=== PATIENT | female | born 1965 | race Caucasian/White ===

== ENCOUNTER → 2017-04-13 | Outpatient (CLI) | payer BC ==
[~2017-04-13] MED LIST: ATIVAN0.5 MG PO; ATIVAN1 MG PO; ZOFRAN4 MG PO; [UNRECOGNIZED DRUG - REMARK]
[2017-04-13 12:09] LABS: CEA 3.1 ng/mL; FREE T4 0.93 ng/dl (0.76-1.46)
[2017-04-13 12:13] LABS: THYROID STIM HORMONE (HS) 0.153 uIU/ml (0.358-4.75)
[2017-04-14 08:07] LABS: ALPHA-1-ANTITRYPSIN, SERUM 123 mg/dL (90-200); FREE T3 010389 3.5 pg/mL (2.0-4.4); RHEUMATOID ARTHRITIS FACTOR <10.0 IU/mL (0.0-13.9)
== END | disposition home or self-care (01) ==
LOC: LAB 10:45
PROVIDERS: Internal Medicine Pulmonary Disease
DX: J45.909 Unspecified asthma, uncomplicated (principal); J44.9 Chronic obstructive pulmonary disease, unspecified; J40 Bronchitis, not specified as acute or chronic; R79.89 Other specified abnormal findings of blood chemistry

== ENCOUNTER → 2017-04-19 | Outpatient (CLI) | payer BC | END | disposition home or self-care (01) | LOC: RAD 12:58 | DX: J44.9 Chronic obstructive pulmonary disease, unspecified (principal); M41.9 Scoliosis, unspecified ==

== ENCOUNTER 2017-11-04 13:16 | Emergency (ER) | payer BC ==
[~2017-11-04] VITALS: Ht 165.1 cm; Wt 63.5 kg
[2017-11-04 14:06] LABS: BASO % 0.8 % (0.0-1.0); EOS # 0.1 10*3/uL (0.0-0.4); EOS % 2.2 % (1.0-4.0); HEMATOCRIT 42.2 % (37.0-47.0); LYMPH # 1.8 10*3/uL (1.3-4.4); LYMPH % 36.9 % (27.0-41.0); MEAN CELL VOLUME 94.2 fl (81.0-99.0); MEAN CORPUSCULAR HGB 31.3 pg (27.0-31.0); MEAN CORPUSCULAR HGB CONC 33.2 g/dl (33.0-37.0); MEAN PLATELET VOLUME 8.8 fl (9.6-12.3); MONO # 0.5 10*3/uL (0.1-1.0); MONO % 9.6 % (3.0-9.0); NEUT # 2.5 10*3/uL (2.3-7.9); NEUT % 50.1 % (47.0-73.0); PLATELET COUNT AUTOMATED 289 10*3/uL (130-400); RED BLOOD COUNT 4.48 10*6/uL (4.10-5.10); RED CELL DISTRI WIDTH 12.2 % (0-14.5); WHITE BLOOD COUNT 4.9 10*3/uL (4.8-10.8)
[2017-11-04 14:24] LABS: ALBUMIN 4.2 gm/dl (3.1-4.5); BUN 7 mg/dl (7-24); CHLORIDE 101 mmol/L (98-107); POTASSIUM 4.3 mmol/L (3.5-5.1); SODIUM 135 mmol/L (136-145)
[2017-11-04 14:29] LABS: ALKALINE PHOSPHATASE 74 U/L (45-117); CREATININE 0.68 mg/dL (0.55-1.02); SGOT/AST 24 IU/L (3-35); SGPT/ALT 19 U/L (12-78); TOTAL PROTEIN 7.1 gm/dL (6.4-8.2)
[2017-11-04 14:35] LABS: LIPASE 92 U/L (73-393)
[2017-11-04 15:12] LABS: BILIRUBIN NEGATIVE (NEGATIVE); BLOOD NEGATIVE (NEGATIVE); CLARITY CLEAR (CLEAR); COLOR YELLOW (YELLOW); GLUCOSE NEGATIVE (NEGATIVE); KETONE NEGATIVE (NEGATIVE); LEUKO ESTERASE NEGATIVE (NEGATIVE); NITRITE NEGATIVE (NEGATIVE); SPECIFIC GRAVITY <= 1.005 (1.005-1.030); UROBILINOGEN 0.2 E.U./dl (0.2-1.0)
[2017-11-04 15:24] LABS: BACTERIA TRACE
[2017-11-04] MEDS ORDERED: CARAFATE1 G1 PO (16:08)
[2017-11-04] MEDS ORDERED: SUNMARK OMEPRAZ20 M1 PO (16:08)
[2017-11-04] MEDS ORDERED: ZANTAC 150150 MG PO (16:08)
[2017-11-04] MEDS ORDERED: ZOFRAN4 MG PO (16:08)
== END 2017-11-04 16:16 | disposition home or self-care (01) ==
LOC: ED 13:16
PROVIDERS: Nurse Practitioner Family
DX: R10.13 Epigastric pain (principal); R11.2 Nausea with vomiting, unspecified; R03.0 Elevated blood-pressure reading, without diagnosis of hypertension; Z79.899 Other long term (current) drug therapy

== ENCOUNTER → 2018-04-30 | Outpatient (CLI) | payer BC ==
[~2018-04-30] MED LIST changes: +CARAFATE1 G1 PO; +SUNMARK OMEPRAZ20 M1 PO; +ZANTAC 150150 MG PO
[2018-04-30 13:03] LABS: BASO # 0.1 10*3/uL (0.0-0.1); BASO % 1.1 % (0.0-1.0); EOS # 0.1 10*3/uL (0.0-0.4); EOS % 1.9 % (1.0-4.0); HEMATOCRIT 43.2 % (37.0-47.0); HEMOGLOBIN 13.9 g/dl (12.0-16.0); LYMPH # 1.6 10*3/uL (1.3-4.4); MEAN CELL VOLUME 94.7 fl (81.0-99.0); MEAN CORPUSCULAR HGB 30.5 pg (27.0-31.0); MEAN CORPUSCULAR HGB CONC 32.2 g/dl (33.0-37.0); MEAN PLATELET VOLUME 9.1 fl (9.6-12.3); MONO # 0.4 10*3/uL (0.1-1.0); MONO % 6.8 % (3.0-9.0); NEUT # 3.2 10*3/uL (2.3-7.9); PLATELET COUNT AUTOMATED 317 10*3/uL (130-400); RED BLOOD COUNT 4.56 10*6/uL (4.10-5.10); RED CELL DISTRI WIDTH 12.1 % (0-14.5); WHITE BLOOD COUNT 5.3 10*3/uL (4.8-10.8)
[2018-04-30 13:18] LABS: ALKALINE PHOSPHATASE 75 U/L (45-117); BUN 10 mg/dl (7-24); CHLORIDE 106 mmol/L (98-107); CREATININE 0.67 mg/dL (0.55-1.02); POTASSIUM 4.1 mmol/L (3.5-5.1); SGOT/AST 12 IU/L (3-35); SGPT/ALT 18 U/L (12-78); SODIUM 141 mmol/L (136-145); THYROXINE (T4) TOTAL 9.2 ug/dl (4.8-13.9); TOTAL PROTEIN 7.1 gm/dL (6.4-8.2)
[2018-04-30 14:42] LABS: VITAMIN D, 25-HYDROXY 21.6 ng/mL (30-100)
== END | disposition home or self-care (01) ==
LOC: LAB 12:43
PROVIDERS: Registered Nurse Psychiatric/Mental Health
DX: F33.40 Major depressive disorder, recurrent, in remission, unspecified (principal)

== ENCOUNTER → 2018-05-22 | Outpatient (CLI) | payer BC ==
[2018-05-27 17:07] LABS: DQA1*01:02 Negative (.); DQB1*06:02 Negative (.)
== END | disposition home or self-care (01) ==
LOC: LAB 13:58
PROVIDERS: Internal Medicine Pulmonary Disease
DX: J43.9 Emphysema, unspecified (principal); I11.0 Hypertensive heart disease with heart failure; I50.9 Heart failure, unspecified; E11.9 Type 2 diabetes mellitus without complications

== ENCOUNTER → 2018-07-08 | Outpatient (CLI) | payer BC | END | disposition home or self-care (01) | LOC: MAMMO 06-24 17:00 | DX: Z12.31 Encounter for screening mammogram for malignant neoplasm of breast (principal) ==

== ENCOUNTER → 2018-07-30 | Outpatient (CLI) | payer BC | END | disposition home or self-care (01) | LOC: MAMMO 08:56 | DX: N63.21 Unspecified lump in the left breast, upper outer quadrant (principal) ==

== ENCOUNTER → 2018-11-07 | Outpatient (CLI) | payer BC ==
[2018-11-08 06:05] LABS: IMMUNOGLOBULIN G, QNT 745 mg/dL (700-1600); IMMUNOGLOBULIN M, QNT 44 mg/dL (26-217)
[2018-11-09 18:03] LABS: METHYLMALONIC ACID 117 nmol/L (0-378)
== END | disposition home or self-care (01) ==
LOC: LAB 11:52
PROVIDERS: Psychiatry & Neurology Neurology
DX: R20.0 Anesthesia of skin (principal); R20.2 Paresthesia of skin

== ENCOUNTER → 2019-07-15 | Outpatient (CLI) | payer OTHER | END | disposition home or self-care (01) | LOC: MAMMO 06:22 | DX: R92.8 Other abnormal and inconclusive findings on diagnostic imaging of breast (principal); R92.2 Inconclusive mammogram ==

== ENCOUNTER → 2020-07-25 | Outpatient (CLI) | payer OTHER ==
[2020-07-25 14:26] LABS: BUN 9 mg/dl (7-24); CHLORIDE 103 mmol/L (98-107); CHOLESTEROL 232 mg/dL (<200); CREATININE 0.75 mg/dL (0.55-1.02); HDL CHOLESTEROL 71 mg/dl (40-60); LDL CHOLESTEROL 136 mg/dL (9-159); POTASSIUM 3.9 mmol/L (3.5-5.1); SODIUM 137 mmol/L (136-145); TRIGLYCERIDES 124 mg/dl (<150); VLDL CHOLESTEROL 25 mg/dL (6-40)
== END | disposition home or self-care (01) ==
LOC: LAB 13:34
PROVIDERS: ATTEND Family Medicine
DX: E78.2 Mixed hyperlipidemia (principal); J44.9 Chronic obstructive pulmonary disease, unspecified

== ENCOUNTER → 2021-06-13 | Outpatient (CLI) | payer OTHER | END | disposition home or self-care (01) | LOC: LAB 16:11 | PROVIDERS: ATTEND Family Medicine | DX: I49.9 Cardiac arrhythmia, unspecified (principal) ==

== ENCOUNTER → 2021-09-22 | Outpatient (CLI) | payer OTHER | END | disposition home or self-care (01) | LOC: COVID19 07:12 | PROVIDERS: ATTEND Internal Medicine | DX: R06.02 Shortness of breath (principal); Z20.822 Contact with and (suspected) exposure to COVID-19 ==

== ENCOUNTER → 2021-10-06 | Outpatient (CLI) | payer OTHER | END | disposition home or self-care (01) | LOC: COVID19 01:01 | PROVIDERS: ATTEND Internal Medicine | DX: Z20.822 Contact with and (suspected) exposure to COVID-19 (principal) ==

== ENCOUNTER → 2021-12-01 | Outpatient (CLI) | payer OTHER | END | disposition home or self-care (01) | LOC: COVID19 10:49 | PROVIDERS: ATTEND Internal Medicine | DX: Z20.822 Contact with and (suspected) exposure to COVID-19 (principal) ==

== ENCOUNTER → 2021-12-14 | Outpatient (CLI) | payer OTHER | END | disposition home or self-care (01) | LOC: MAMMO 14:00 | PROVIDERS: ATTEND Family Medicine | DX: Z12.31 Encounter for screening mammogram for malignant neoplasm of breast (principal) ==

== ENCOUNTER → 2021-12-29 | Outpatient (CLI) | payer OTHER | END | disposition home or self-care (01) | LOC: COVID19 00:34 | PROVIDERS: ATTEND Internal Medicine | DX: Z20.822 Contact with and (suspected) exposure to COVID-19 (principal) ==

== ENCOUNTER → 2022-01-19 | Outpatient (CLI) | payer OTHER | END | disposition home or self-care (01) | LOC: COVID19 09:16 | PROVIDERS: ATTEND Internal Medicine | DX: Z20.822 Contact with and (suspected) exposure to COVID-19 (principal) ==

== ENCOUNTER → 2023-06-25 | Outpatient (CLI) | payer OTHER | END | disposition home or self-care (01) | LOC: RAD 13:54 | PROVIDERS: ATTEND Family Medicine | DX: K63.89 Other specified diseases of intestine (principal); K51.50 Left sided colitis without complications; M41.85 Other forms of scoliosis, thoracolumbar region ==

== ENCOUNTER → 2023-09-17 | Outpatient (CLI) | payer OTHER | END | disposition home or self-care (01) | LOC: US 00:34 | PROVIDERS: ATTEND Physician Assistant | DX: R59.1 Generalized enlarged lymph nodes (principal) ==

== ENCOUNTER → 2023-10-04 | Outpatient (CLI) | payer OTHER | END | disposition home or self-care (01) | LOC: MAMMO 09-24 15:30 → CT 00:06 | PROVIDERS: ATTEND Physician Assistant | DX: Z12.2 Encounter for screening for malignant neoplasm of respiratory organs (principal); F17.210 Nicotine dependence, cigarettes, uncomplicated; R91.1 Solitary pulmonary nodule ==

== ENCOUNTER → 2023-10-08 | Outpatient (CLI) | payer OTHER | LOC: MAMMO 00:33 | PROVIDERS: ATTEND Physician Assistant | DX: Z12.31 Encounter for screening mammogram for malignant neoplasm of breast (principal) ==

== ENCOUNTER → 2023-10-11 | Outpatient (CLI) | payer OTHER ==
[2023-10-11 13:22] LABS: HEMATOCRIT 42.2 % (37.0-47.0); MEAN CELL VOLUME 91.9 fl (81.0-99.0); MEAN CORPUSCULAR HGB 31.4 pg (27.0-31.0); MEAN CORPUSCULAR HGB CONC 34.1 g/dl (33.0-37.0); MEAN PLATELET VOLUME 8.4 fl (9.6-12.3); RED BLOOD COUNT 4.59 10*6/uL (4.10-5.10); WHITE BLOOD COUNT 6.4 10*3/uL (4.8-10.8)
[2023-10-11 14:21] LABS: ALKALINE PHOSPHATASE 69 U/L (46-116); BUN 6 mg/dl (9-23); CHLORIDE 98 mmol/L (98-107); CHOLESTEROL 198 mg/dL (<200); LDL CHOLESTEROL 120 mg/dL (9-159); POTASSIUM 3.8 mmol/L (3.4-5.1); SGPT/ALT 12 U/L (5-49); TOTAL PROTEIN 6.8 gm/dL (6.0-8.0); TRIGLYCERIDES 43 mg/dl (<150)
[2023-10-11 14:39] LABS: FREE T4 1.29 ng/dl (0.89-1.76)
== END | disposition home or self-care (01) ==
LOC: LAB 01:42
PROVIDERS: ATTEND Physician Assistant
DX: Z12.31 Encounter for screening mammogram for malignant neoplasm of breast (principal); K58.9 Irritable bowel syndrome, unspecified; F17.200 Nicotine dependence, unspecified, uncomplicated; G89.29 Other chronic pain

== ENCOUNTER → 2024-06-18 | Outpatient (CLI) | payer OTHER ==
[2024-06-19 12:07] LABS: t-TRANSGLUTAMINASE (tTG) IGA <2 U/mL (0-3); t-TRANSGLUTAMINASE (tTG) IgG 2 U/mL (0-5)
== END | disposition home or self-care (01) ==
LOC: LAB 07:30
PROVIDERS: ATTEND Nurse Practitioner Family
DX: K52.21 Food protein-induced enterocolitis syndrome (principal); K59.1 Functional diarrhea; R53.83 Other fatigue

== ENCOUNTER → 2024-06-21 | Outpatient (CLI) | payer OTHER | END | disposition home or self-care (01) | LOC: LAB 03:00 | PROVIDERS: ATTEND Nurse Practitioner Family | DX: K59.09 Other constipation (principal) ==

== ENCOUNTER 2024-08-14 22:06 | Inpatient (IN) | payer OTHER ==
[~2024-08-14] VITALS: Ht 162.5 cm; Wt 55.5 kg
[2024-08-14 22:06] VITALS: BP 166/89
[2024-08-14] MEDS ORDERED: SODIUM CHLORIDE 0.9% 1,000 ML IV ONE (22:15)
[2024-08-14] MEDS ORDERED: IOHEXOL 300 MG/ML 100 ML VIAL IV ONE (22:30)
[2024-08-14 22:46] LABS: BASO # 0.1 10*3/uL (0.0-0.1); BASO % 0.4 % (0.0-1.0); EOS # 0.1 10*3/uL (0.0-0.4); EOS % 0.9 % (1.0-4.0); HEMATOCRIT 44.2 % (37.0-47.0); MEAN CELL VOLUME 91.1 fl (81.0-99.0); MEAN CORPUSCULAR HGB 30.5 pg (27.0-31.0); MEAN CORPUSCULAR HGB CONC 33.5 g/dl (33.0-37.0); MONO # 0.7 10*3/uL (0.1-1.0); MONO % 4.7 % (3.0-9.0); NEUT # 12.2 10*3/uL (2.3-7.9); NEUT % 80.8 % (47.0-73.0); PLATELET COUNT AUTOMATED 298 10*3/uL (130-400); RED BLOOD COUNT 4.85 10*6/uL (4.10-5.10); RED CELL DISTRI WIDTH 12.9 % (0-14.5); WHITE BLOOD COUNT 15.1 10*3/uL (4.8-10.8)
[2024-08-14] MEDS ORDERED: diphenhydrAMINE hydrochloride 50 MG/ML VIAL IV ONE (23:00)
[2024-08-14] MEDS ORDERED: Metoclopramide Hydrochloride 10 MG/2 ML VIAL IV ONE (23:00)
[2024-08-14 23:11] LABS: ALKALINE PHOSPHATASE 62 U/L (46-116); BUN 17 mg/dl (9-23); CHLORIDE 102 mmol/L (98-107); LIPASE 27 U/L (12-53); POTASSIUM 3.7 mmol/L (3.4-5.1); SGPT/ALT 15 U/L (5-49); TOTAL PROTEIN 7.3 gm/dL (6.0-8.0)
[2024-08-15] MEDS ORDERED: HYDROmorphONE Hydrochloride 0.5 MG/0.5 ML SYRINGE IV ONE ×2 (00:05→02:10)
[2024-08-15 00:48] LABS: BILIRUBIN Negative (Negative); BLOOD Trace-Lysed (Negative); CLARITY Clear (Clear); COLOR Yellow (Yellow); GLUCOSE Negative (Negative); KETONE 1+ (Negative); LEUKO ESTERASE Negative (Negative); NITRITE Negative (Negative); SPECIFIC GRAVITY >= 1.030 (1.001-1.030); UROBILINOGEN 0.2 E.U./dl (0.0-1.0)
[2024-08-15 01:19] LABS: MUCOUS TRACE; WBC 0-2 wbc/hpf (0-5)
[2024-08-15 01:38] VITALS: BP 169/90
[2024-08-15] MEDS ORDERED: LORAZEPAM1 MG PO (01:58)
[2024-08-15] MEDS ORDERED: Ondansetron Hydrochloride 4 MG/2 ML VIAL IV ONE (02:10)
[2024-08-15] MEDS ORDERED: FLUOXETINE HCL40 MG PO (02:24)
[2024-08-15] MEDS ORDERED: VITAMIN D350 MCG PO (02:25)
[2024-08-15] MEDS ORDERED: TIZANIDINE HCL4 MG PO (02:25)
[2024-08-15] MEDS ORDERED: PANTOPRAZOLE SO40 MG PO (02:25)
[2024-08-15] MEDS ORDERED: SPIRIVA RESPIMAT4 GM INH (02:26)
[2024-08-15] MEDS ORDERED: ADV 100/50 INH (02:26)
[2024-08-15] MEDS ORDERED: BISACODYL 10 MG SUPP R PRN (03:10)
[2024-08-15] MEDS ORDERED: TEMAZEPAM 15 MG CAP PO PRN (03:10)
[2024-08-15] MEDS ORDERED: Magnesium Hydroxide 30 ML UDC PO PRN (03:10)
[2024-08-15] MEDS ORDERED: MORPHINE Sulfate 2 MG/ML SYR IV PRN (03:10)
[2024-08-15] MEDS ORDERED: BISACODYL 5 MG TAB PO PRN (03:10)
[2024-08-15] MEDS ORDERED: Pantoprazole Sodium 40 MG VIAL IV SCH (06:00)
[2024-08-15 07:32] LABS: HEMATOCRIT 47.6 % (37.0-47.0); MEAN CELL VOLUME 91.4 fl (81.0-99.0); MEAN CORPUSCULAR HGB 30.5 pg (27.0-31.0); MEAN CORPUSCULAR HGB CONC 33.4 g/dl (33.0-37.0); MEAN PLATELET VOLUME 9.2 fl (9.6-12.3); PLATELET COUNT AUTOMATED 306 10*3/uL (130-400); RED BLOOD COUNT 5.21 10*6/uL (4.10-5.10); WHITE BLOOD COUNT 14.1 10*3/uL (4.8-10.8)
[2024-08-15 07:37] LABS: MANUAL DIFF REFLEX YES
[2024-08-15 07:42] VITALS: BP 186/87
[2024-08-15 07:46] LABS: ACT PARTIAL THROMBO TIME 25.3 SECONDS (20.0-32.1)
[2024-08-15 07:54] LABS: TOTAL CELLS COUNTED 100 #CELLS
[2024-08-15 07:55] LABS: BURR CELLS FEW; PLATELET SUFFICIENCY NORMAL (NORMAL)
[2024-08-15 08:05] LABS: CHOLESTEROL 220 mg/dL (<200); LDL CHOLESTEROL 125 mg/dL (9-159); TRIGLYCERIDES 57 mg/dl (<150)
[2024-08-15 08:06] LABS: ALKALINE PHOSPHATASE 67 U/L (46-116); BUN 12 mg/dl (9-23); CHLORIDE 101 mmol/L (98-107); FREE T4 1.45 ng/dl (0.89-1.76); POTASSIUM 3.9 mmol/L (3.4-5.1); SGPT/ALT 15 U/L (5-49); TOTAL PROTEIN 7.4 gm/dL (6.0-8.0)
[2024-08-15 08:24] LABS: VITAMIN D, 25-HYDROXY 69.6 ng/mL (30-100)
[2024-08-15] MEDS ORDERED: MORPHINE Sulfate 2 MG/ML SYR IV ONE (09:15)
[2024-08-15] MEDS ORDERED: SODIUM CHLORIDE 0.9% 1,000 ML IV ONE (09:50)
[2024-08-15] MEDS ORDERED: Enoxaparin Sodium 40 MG/0.4 ML SYR SC SCH (10:00)
[2024-08-15] MEDS ORDERED: Ondansetron Hydrochloride 4 MG/2 ML VIAL IV PRN (12:20)
[2024-08-15] MEDS ORDERED: Scopolamine 1 PATCH PATCH T SCH (12:20)
[2024-08-15] MEDS ORDERED: Nicotine 21 MG PATCH T SCH (14:00)
[2024-08-15 16:00] VITALS: BP 182/96
[2024-08-15 16:35] VITALS: BP 176/80
[2024-08-15] MEDS ORDERED: HYDROmorphONE Hydrochloride 0.5 MG/0.5 ML SYRINGE IV PRN (16:40)
[2024-08-15] MEDS ORDERED: hydrALAZINE hydrochloride 20 MG/ML VIAL IV ONE (16:40)
[2024-08-15 17:55] VITALS: BP 152/90
[2024-08-15 20:00] VITALS: BP 151/84
[2024-08-15] MEDS ORDERED: Ketorolac Tromethamine 30 MG/ML VIAL IV ONE (22:15)
[2024-08-15] MEDS ORDERED: diazePAM 10 MG/2 ML SYR IV ONE (22:50)
[2024-08-16] VITALS: BP 156/88
[2024-08-16] MEDS ORDERED: SODIUM CHLORIDE 0.9% 1,000 ML IV SCH (01:25)
[2024-08-16] MEDS ORDERED: methylPREDNISolone sod succ 40 MG IV SCH (07:10)
[2024-08-16] MEDS ORDERED: methylPREDNISolone sod succ 40 MG VIAL IV SCH (07:18)
[2024-08-16] MEDS ORDERED: SODIUM CHLORIDE 0.9% 1,000 ML IV ONE (07:30)
[2024-08-16 08:00] VITALS: BP 170/64
[2024-08-16] MEDS ORDERED: diazePAM 10 MG/2 ML SYR IV ONE ×2 (08:50→21:35)
[2024-08-16 11:23] LABS: HEMATOCRIT 44.9 % (37.0-47.0); MEAN CELL VOLUME 91.6 fl (81.0-99.0); MEAN CORPUSCULAR HGB CONC 32.7 g/dl (33.0-37.0); MEAN PLATELET VOLUME 9.4 fl (9.6-12.3); PLATELET COUNT AUTOMATED 291 10*3/uL (130-400); RED CELL DISTRI WIDTH 13.3 % (0-14.5); WHITE BLOOD COUNT 17.7 10*3/uL (4.8-10.8)
[2024-08-16 11:35] LABS: MANUAL DIFF REFLEX YES
[2024-08-16 11:45] LABS: BUN 13 mg/dl (9-23); CHLORIDE 108 mmol/L (98-107)
[2024-08-16 11:52] LABS: PLATELET SUFFICIENCY NORMAL (NORMAL); TOTAL CELLS COUNTED 100 #CELLS
[2024-08-16 12:00] VITALS: BP 160/82
[2024-08-16] MEDS ORDERED: Ketorolac Tromethamine 15 MG/ML VIAL IV PRN ×2 (14:30→21:26)
[2024-08-16 16:00] VITALS: BP 153/78
[2024-08-16] MEDS ORDERED: IOHEXOL 9 MG/ML (IODINE) ORAL SOLUTION PO ONE (16:30)
[2024-08-16] MEDS ORDERED: fentaNYL CITRATE 100 MCG/2 ML VIAL IV ONE (18:45)
[2024-08-16 19:00] VITALS: BP 190/100
[2024-08-16 20:03] VITALS: BP 195/105
[2024-08-16] MEDS ORDERED: methylPREDNISolone sod succ 125 MG VIAL IV SCH (21:15)
[2024-08-16] MEDS ORDERED: Albuterol Sulf/Ipratropium 3 ML VIAL NEB PRN (21:25)
[2024-08-16] MEDS ORDERED: Metoprolol Tartrate 5 MG/5 ML VIAL IV ONE (21:50)
[2024-08-17] VITALS (10 sets, daily range): BP systolic 136–195; BP diastolic 75–105
[2024-08-17 05:30] LABS: BUN 12 mg/dl (9-23); CHLORIDE 102 mmol/L (98-107); POTASSIUM 3.1 mmol/L (3.4-5.1)
[2024-08-17 06:20] LABS: BASO % 0.1 % (0.0-1.0); EOS % 0.1 % (1.0-4.0); HEMATOCRIT 42.4 % (37.0-47.0); MEAN CELL VOLUME 91.4 fl (81.0-99.0); MEAN CORPUSCULAR HGB CONC 32.8 g/dl (33.0-37.0); MONO # 1.2 10*3/uL (0.1-1.0); MONO % 7.5 % (3.0-9.0); NEUT # 13.3 10*3/uL (2.3-7.9); NEUT % 84.3 % (47.0-73.0); PLATELET COUNT AUTOMATED 282 10*3/uL (130-400); RED BLOOD COUNT 4.64 10*6/uL (4.10-5.10); RED CELL DISTRI WIDTH 13.2 % (0-14.5); WHITE BLOOD COUNT 15.8 10*3/uL (4.8-10.8)
[2024-08-17] MEDS ORDERED: POTASSIUM CHLORIDE IN WATER 100 ML IV SCH (08:00)
[2024-08-17] MEDS ORDERED: SODIUM CHLORIDE 0.9% 500 ML IV ONE ×2 (08:39→18:48)
[2024-08-17] MEDS ORDERED: methylPREDNISolone sod succ 125 MG VIAL IV SCH (10:00)
[2024-08-17] MEDS ORDERED: Lactated Ringer's Solution 1,000 ML IV ONE ×2 (13:44→16:00)
[2024-08-17] MEDS ORDERED: MORPHINE Sulfate 5 MG/10 ML PF ONE (14:00)
[2024-08-17] MEDS ORDERED: ceFAZolin sodium/sodium chlor 20 ML IV ONE ×2 (15:10→15:27)
[2024-08-17] MEDS ORDERED: MORPHINE Sulfate 30 MG/30 ML SYR IV SCH (15:15)
[2024-08-17] MEDS ORDERED: MORPHINE Sulfate 50 MG in SODIUM CHLORIDE 0.9% 45 ML IV SCH (15:30)
[2024-08-17] MEDS ORDERED: POTASSIUM CHLORIDE 10 MEQ in DEXTROSE 5% IN LACTATED RINGER 1,000 ML IV SCH (16:00)
[2024-08-17] MEDS ORDERED: BUPivacaine 0.5% 30 ML IV ONE (16:39)
[2024-08-17] MEDS ORDERED: HYDROmorphONE Hydrochloride 0.5 MG/0.5 ML SYRINGE ONE ×2 (17:03→17:25)
[2024-08-17] MEDS ORDERED: HYDROmorphONE Hydrochloride 0.5 MG/0.5 ML SYRINGE IV ONE (17:10)
[2024-08-17] MEDS ORDERED: Ondansetron Hydrochloride 4 MG/2 ML VIAL IV ONE (21:10)
[2024-08-17] MEDS ORDERED: PROPOFOL 200 MG/20 ML VIAL IV ONE (21:10)
[2024-08-17] MEDS ORDERED: Midazolam Hydrochloride 2 MG/2 ML VIAL IV ONE (21:10)
[2024-08-17] MEDS ORDERED: Dexamethasone Sodium Phospha 4 MG/ML VIAL IV ONE (21:10)
[2024-08-17] MEDS ORDERED: SUGAMMADEX SODIUM 200 MG/2 ML VIAL IV ONE (21:10)
[2024-08-17] MEDS ORDERED: Lidocaine Hydrochloride 5 ML VIAL IV ONE (21:10)
[2024-08-17] MEDS ORDERED: ROCURONIUM BROMIDE 50 MG/5 ML SYRINGE IV ONE (21:10)
[2024-08-17] MEDS ORDERED: SEVOFLURANE 250 ML BOT INH ONE (21:10)
[2024-08-17] MEDS ORDERED: Phenylephrine Hydrochloride 1 MG/10 ML SYRINGE IV ONE (21:10)
[2024-08-17] MEDS ORDERED: diazePAM 10 MG/2 ML SYR IV SCH (22:45)
[2024-08-18] VITALS: BP 132/81
[2024-08-18 04:00] VITALS: BP 132/81
[2024-08-18 06:27] LABS: BASO % 0.1 % (0.0-1.0); EOS % 0.1 % (1.0-4.0); HEMATOCRIT 36.7 % (37.0-47.0); MEAN CELL VOLUME 94.3 fl (81.0-99.0); MEAN CORPUSCULAR HGB 30.1 pg (27.0-31.0); MEAN CORPUSCULAR HGB CONC 31.9 g/dl (33.0-37.0); MEAN PLATELET VOLUME 9.6 fl (9.6-12.3); MONO # 1.2 10*3/uL (0.1-1.0); MONO % 9.2 % (3.0-9.0); NEUT % 79.5 % (47.0-73.0); PLATELET COUNT AUTOMATED 224 10*3/uL (130-400); RED BLOOD COUNT 3.89 10*6/uL (4.10-5.10); RED CELL DISTRI WIDTH 13.1 % (0-14.5); WHITE BLOOD COUNT 12.6 10*3/uL (4.8-10.8)
[2024-08-18 06:44] LABS: BUN 10 mg/dl (9-23); CHLORIDE 105 mmol/L (98-107); POTASSIUM 3.6 mmol/L (3.4-5.1)
[2024-08-18] MEDS ORDERED: MINERAL OIL 30 ML UDC PO ONE (07:00)
[2024-08-18] MEDS ORDERED: CALCIUM GLUCONATE 1 GM/10 ML VIAL IV ONE (07:50)
[2024-08-18 08:00] VITALS: BP 100/67; BP 114/72
[2024-08-18] MEDS ORDERED: Enoxaparin Sodium 40 MG/0.4 ML SYR SC SCH (08:00)
[2024-08-18] MEDS ORDERED: SODIUM CHLORIDE 0.9% 500 ML IV ONE (11:19)
[2024-08-18 12:00] VITALS: BP 112/59
[2024-08-18 16:00] VITALS: BP 147/77
[2024-08-18 20:00] VITALS: BP 143/75
[2024-08-18] MEDS ORDERED: AQUAPHOR OINTMENT Base 50 GM TUBE T SCH (22:00)
[2024-08-19] VITALS: BP 140/71
[2024-08-19 04:00] VITALS: BP 137/71
[2024-08-19 06:08] LABS: BASO % 0.3 % (0.0-1.0); EOS # 0.3 10*3/uL (0.0-0.4); EOS % 2.8 % (1.0-4.0); HEMATOCRIT 36.8 % (37.0-47.0); MEAN CELL VOLUME 93.9 fl (81.0-99.0); MEAN CORPUSCULAR HGB 30.1 pg (27.0-31.0); MEAN CORPUSCULAR HGB CONC 32.1 g/dl (33.0-37.0); MEAN PLATELET VOLUME 9.8 fl (9.6-12.3); MONO # 0.9 10*3/uL (0.1-1.0); MONO % 9.2 % (3.0-9.0); NEUT # 6.3 10*3/uL (2.3-7.9); NEUT % 65.3 % (47.0-73.0); PLATELET COUNT AUTOMATED 240 10*3/uL (130-400); RED BLOOD COUNT 3.92 10*6/uL (4.10-5.10); WHITE BLOOD COUNT 9.7 10*3/uL (4.8-10.8)
[2024-08-19] MEDS ORDERED: POTASSIUM CL/0.9% SODIUM CL 1,000 ML IV SCH (06:30)
[2024-08-19 06:44] LABS: BUN 7 mg/dl (9-23); CHLORIDE 100 mmol/L (98-107); POTASSIUM 2.9 mmol/L (3.4-5.1)
[2024-08-19] MEDS ORDERED: SODIUM CHLORIDE 0.9% 1,000 ML IV ONE (06:51)
[2024-08-19] MEDS ORDERED: Albuterol Sulfate 2.5 MG/3 ML VIAL NEB SCH (07:45)
[2024-08-19] MEDS ORDERED: BUDESONIDE 0.5 MG AMP NEB SCH (07:45)
[2024-08-19 08:00] VITALS: BP 160/88
[2024-08-19] MEDS ORDERED: POTASSIUM CHLORIDE IN WATER 100 ML IV SCH (08:00)
[2024-08-19 12:00] VITALS: BP 173/82
[2024-08-19] MEDS ORDERED: HYDROmorphONE Hydrochloride 0.5 MG/0.5 ML SYRINGE IV PRN (13:05)
[2024-08-19 16:00] VITALS: BP 133/76
[2024-08-19 20:00] VITALS: BP 147/82
[2024-08-20] VITALS: BP 173/141
[2024-08-20 00:05] VITALS: BP 162/80
[2024-08-20 06:53] LABS: BUN 5 mg/dl (9-23); CHLORIDE 104 mmol/L (98-107); POTASSIUM 3.3 mmol/L (3.4-5.1)
[2024-08-20 08:00] VITALS: BP 146/76
[2024-08-20] MEDS ORDERED: POTASSIUM CHLORIDE IN WATER 100 ML IV SCH (08:00)
[2024-08-20] MEDS ORDERED: SODIUM CHLORIDE 0.9% 1,000 ML IV ONE ×3 (08:25→09:07)
[2024-08-20] MEDS ORDERED: Acetaminophen/Oxycodone 5 MG/325 MG TABLET PO PRN (08:25)
[2024-08-20] MEDS ORDERED: diazePAM 10 MG/2 ML SYR IV ONE (10:00)
[2024-08-20 12:00] VITALS: BP 134/75
[2024-08-20 15:22] VITALS: BP 130/63
[2024-08-20 20:00] VITALS: BP 138/84
[2024-08-21] VITALS: BP 149/83
[2024-08-21 06:08] LABS: BASO % 0.4 % (0.0-1.0); EOS # 0.5 10*3/uL (0.0-0.4); EOS % 6.6 % (1.0-4.0); HEMATOCRIT 39.5 % (37.0-47.0); MEAN CELL VOLUME 92.7 fl (81.0-99.0); MEAN CORPUSCULAR HGB CONC 32.4 g/dl (33.0-37.0); MEAN PLATELET VOLUME 9.6 fl (9.6-12.3); MONO # 0.6 10*3/uL (0.1-1.0); MONO % 8.2 % (3.0-9.0); NEUT % 58.2 % (47.0-73.0); PLATELET COUNT AUTOMATED 256 10*3/uL (130-400); RED BLOOD COUNT 4.26 10*6/uL (4.10-5.10); WHITE BLOOD COUNT 6.8 10*3/uL (4.8-10.8)
[2024-08-21 06:55] LABS: CHLORIDE 105 mmol/L (98-107); POTASSIUM 3.4 mmol/L (3.4-5.1)
[2024-08-21 06:58] LABS: BUN < 5 mg/dl (9-23)
[2024-08-21] MEDS ORDERED: PERCOCET 5-3251 EACH PO (07:18)
[2024-08-21 08:00] VITALS: BP 124/66
== END 2024-08-21 11:00 | disposition home or self-care (01) | DRG 224 ==
LOC: ED 22:06 → 5E 08-15 03:00 → EDHOLD 08-15 03:00 → 5E 08-15 11:19
PROVIDERS: Family Medicine; Internal Medicine; Student in an Organized Health Care Education/Training Program; ADMIT Student in an Organized Health Care Education/Training Program; ATTEND Student in an Organized Health Care Education/Training Program
PROC: 0D9670Z Drainage of Stomach with Drainage Device, Via Natural or Artificial Opening (ICD-10-PCS; principal; 2024-08-15)
PROC: 0WQF0ZZ Repair Abdominal Wall, Open Approach (ICD-10-PCS; 2024-08-17)
PROC: 0DNB0ZZ Release Ileum, Open Approach (ICD-10-PCS; 2024-08-17)
PROC: 0DNU0ZZ Release Omentum, Open Approach (ICD-10-PCS; 2024-08-17)
PROC: 0DNW0ZZ Release Peritoneum, Open Approach (ICD-10-PCS; 2024-08-17)
PROC: 0DSB0ZZ Reposition Ileum, Open Approach (ICD-10-PCS; 2024-08-17)
PROC: 0DJD4ZZ Inspection of Lower Intestinal Tract, Percutaneous Endoscopic Approach (ICD-10-PCS; 2024-08-17)
DX: K46.0 Unspecified abdominal hernia with obstruction, without gangrene (principal); E87.1 Hypo-osmolality and hyponatremia; R31.9 Hematuria, unspecified; K58.9 Irritable bowel syndrome, unspecified; K21.9 Gastro-esophageal reflux disease without esophagitis; J44.9 Chronic obstructive pulmonary disease, unspecified; F41.1 Generalized anxiety disorder; F17.210 Nicotine dependence, cigarettes, uncomplicated; R18.8 Other ascites; E78.5 Hyperlipidemia, unspecified; R73.9 Hyperglycemia, unspecified; Z79.899 Other long term (current) drug therapy; Z88.5 Allergy status to narcotic agent

== ENCOUNTER → 2025-04-05 | Outpatient (CLI) | payer OTHER ==
[~2025-04-05] MED LIST changes: +ADV 100/50 INH; +FLUOXETINE HCL40 MG PO; +LORAZEPAM1 MG PO; +PANTOPRAZOLE SO40 MG PO; +PERCOCET 5-3251 EACH PO; +Regadenoson 0.4 MG/5 ML SYR IV ONE; +SPIRIVA RESPIMAT4 GM INH; +TIZANIDINE HCL4 MG PO; +Technetium Tc 99M Tetrofosmi 0.23 MG KIT IJ SCH; +VITAMIN D350 MCG PO
== END | disposition home or self-care (01) ==
LOC: CARD 00:14
PROVIDERS: ATTEND Nurse Practitioner Family
DX: I51.7 Cardiomegaly (principal); R00.2 Palpitations; R06.02 Shortness of breath; R07.89 Other chest pain